=== PATIENT | female | born 1950 | race Caucasian/White ===

== ENCOUNTER 2019-04-06 11:26 | Day surgery (SDC) | payer MEDICARE, OTHER ==
[~2019-04-06 11:26] MED LIST: CYCLOPENTOLATE 1% 2 ML OPH OPER; NEPAFENAC 0.1% 3 ML OPH OPER; TROPICAMIDE 1% 15 ML OPH OPER
[2019-04-06] MEDS: hydrALAzine 20 MG INJ IV ×2 (13:15→13:42)
[2019-04-06] MEDS ORDERED: MIDAZOLAM 1 MG/ML 2 ML INJ (13:18)
[2019-04-06] MEDS: NEPAFENAC 0.1% 3 ML OPH OPER (13:26)
[2019-04-06] MEDS: MOXIFLOXACIN 0.5% 3 ML OPH OPER (13:26)
[2019-04-06] MEDS: TROPICAMIDE 1% 15 ML OPH OPER (13:27)
[2019-04-06] MEDS: PHENYLephrine 2.5% 15 ML OPH OPER (13:28)
== END 2019-04-06 14:40 ==
LOC: SDS 11:26
DX: H26.8 Other specified cataract (principal); Z53.8 Procedure and treatment not carried out for other reasons; I10 Essential (primary) hypertension; E11.9 Type 2 diabetes mellitus without complications; Z79.4 Long term (current) use of insulin
CPT/HCPCS: 82962

== ENCOUNTER 2019-04-06 14:50 | Emergency (ER) | payer MEDICARE, OTHER ==
[2019-04-06] MEDS: NIFEdipine 10 MG CAP PO ×2 (18:48)
== END 2019-04-06 19:49 | disposition home or self-care (01) ==
LOC: FTE 14:50
DX: I10 Essential (primary) hypertension (principal); E11.9 Type 2 diabetes mellitus without complications; Z79.4 Long term (current) use of insulin
CPT/HCPCS: 99283

== ENCOUNTER 2019-05-25 11:06 | Day surgery (SDC) | payer MEDICARE, OTHER ==
[2019-05-25] MEDS: MOXIFLOXACIN 0.5% 3 ML OPH OPER (12:01)
[2019-05-25] MEDS: PHENYLephrine 2.5% 15 ML OPH OPER (12:01)
[2019-05-25] MEDS: NEPAFENAC 0.1% 3 ML OPH OPER (12:01)
[2019-05-25] MEDS: CYCLOPENTOLATE 1% 2 ML OPH OPER (12:01)
[2019-05-25] MEDS: TROPICAMIDE 1% 15 ML OPH OPER (12:03)
[2019-05-25] MEDS ORDERED: NA HYALURONATE/CHONDROITIN 0.5 ML SYG (12:33)
[2019-05-25] MEDS ORDERED: MIDAZOLAM 1 MG/ML 2 ML INJ (13:21)
[2019-05-25] MEDS ORDERED: FENTAnyl 50 MCG/ML VIAL (13:21)
[2019-05-25] MEDS ORDERED: hydrALAzine 20 MG INJ (13:25)
[2019-05-25] MEDS ORDERED: ALBUTEROL 0.083% (NEB) 2.5 MG/3 ML AMP HHN (13:30)
[2019-05-25] MEDS ORDERED: ACETAMINOPHEN 500 MG TAB PO (13:30)
[2019-05-25] MEDS ORDERED: OXYCODONE/ACETAMINOPHEN (5/325) TAB PO (13:30)
[2019-05-25] MEDS ORDERED: ACETAMINOPHEN 325 MG TAB PO (13:30)
[2019-05-25] MEDS ORDERED: DIPHENHYDRAMINE 50 MG INJ IV (13:30)
[2019-05-25] MEDS ORDERED: hydrALAzine 20 MG INJ IV (13:30)
[2019-05-25] MEDS ORDERED: LABETALOL HCL 20MG INJ IV (13:30)
[2019-05-25] MEDS ORDERED: ONDANSETRON 4 MG INJ IV (13:30)
[2019-05-25] MEDS: EPINEPHrine 1 MG INJ (13:40)
[2019-05-25] MEDS: LIDOCAINE 1% (MPF) 30 ML INJ (13:41)
[2019-05-25] MEDS: TETRACAINE 0.5% 4 ML OPH (13:42)
[2019-05-25] MEDS: TOBRAMYCIN/DEXAMETH 3.5 GM OPH OINT (13:43)
[2019-05-25] MEDS: TIMOLOL 0.5% 5 ML OPH (13:43)
[2019-05-25] MEDS: FENTAnyl 50 MCG/ML VIAL IV (14:25)
== END 2019-05-25 19:00 | disposition home or self-care (01) ==
LOC: SDS 19:00
DX: H25.11 Age-related nuclear cataract, right eye (principal); I10 Essential (primary) hypertension; E11.9 Type 2 diabetes mellitus without complications
CPT/HCPCS: 66984; 82962